=== PATIENT | female | born 1990 | race Caucasian/White ===

== ENCOUNTER 2023-03-29 00:19 | Emergency (ER) | payer MEDICAID ==
[2023-03-29 00:56] VITALS: BP 151/98; O2SAT 97
[2023-03-29] MEDS ORDERED: KETOROLAC 10 MG TABLET PO STA (02:18)
--- NOTE | 2023-03-29 02:24 | ED Physician Documentation ---
History of Present Illness - Stated complaint Stated Complaint: R CHEST PX/ - Chief complaint Chief Complaint: General - History obtained from History obtained from: Patient - Additonal information Additional information: 32yF presents with L nipple creamy discharge and intermittent inversion as well as lumpy texture at the 12oclock position just above the nipple. also with R ribcage pain for past couple days. no known trauma. 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 denies fever, soa, cough, hemoptysis, leg swelling, pleurisy. PD PAST MEDICAL HISTORY - Past Medical History Past Medical History: No - Past Surgical History Past Surgical History: Yes Ortho: Other - Present Medications Home Medications: Ambulatory Orders Medication Instructions Recorded Confirmed No Known Home Medications 03/29/23 03/29/23 - Allergies Allergies/Adverse Reactions: Allergies Allergy/AdvReac Type Severity Reaction Status Date / Time No Known Drug Allergies Allergy Verified 03/29/23 00:50 - Social History Does the pt smoke?: Yes Smoking Status: Current every day smoker Does the pt drink ETOH?: No Substance Use and Type: Other PD ED PE NORMAL - Vitals Vital signs reviewed: Yes - General General: Alert and oriented X 3, No acute distress, Well developed/nourished - HEENT HEENT: Atraumatic, PERRL, EOMI, Moist mucous membranes, Pharynx benign - Neck Neck: Supple, no meningeal sign - Cardiac Cardiac: RRR - Respiratory Respiratory: No respiratory distress, Clear bilaterally - Derm Derm: Other (L breast without discoloration. palpable fibrocystic changes without discrete mass) Results - Vitals Vitals: Vital Signs - 24 hr 03/29/23 00:33 Temperature 36.8 C Heart Rate 106 H Respiratory 17 Rate Blood Pressure 151/98 H O2 Saturation 97 Oxygen O2 Source Room air PD Medical Decision Making - ED course ED course: 32yF presents to the ED for checkup of her L breast as well as R ribcage pain. No concern for traumatic etiology. no ecchymosis. pain is reproducible with twisting and palpation, thus likely MSK in origin. Toradol provided with improvement. symptom care discussed. R breast looks like fibrocystic changes. advised outpatient f/u with electrical prospecting observer. return precautions given. Departure - Departure Disposition: 01 Home, Self Care Clinical Impression: Rib pain, Breast mass Condition: Stable Instructions: Fibrocystic Breasts, Costochond Follow-Up: Erick Borja MD [Provider Admit Priv/Credential] - Comments: You were seen in the emergency department for rib pain and breast mass. These look like benign (not dangerous) conditions. You can follow up with electrical prospecting observer about the breast discharge. Please follow-up with your primary care provider and return to the emergency department if you have any new or worsening symptoms or other concerns.
== END 2023-03-29 02:45 | disposition home or self-care (01) ==
LOC: ED 00:19
DX: N63.0 Unspecified lump in unspecified breast (principal); R07.81 Pleurodynia; F17.200 Nicotine dependence, unspecified, uncomplicated
CPT/HCPCS: 99282; 99283; A9270

== ENCOUNTER 2023-04-10 06:19 | Emergency (ER) | payer MEDICAID ==
[2023-04-10 08:00] VITALS: O2SAT 100
--- NOTE | 2023-04-10 08:12 | ED Physician Documentation ---
History of Present Illness - Stated complaint Stated Complaint: L CHEST PX - Chief complaint Chief Complaint: General - History obtained from History obtained from: Patient - Additonal information Additional information: Patient is a 32-year-old female presenting for evaluation of redness and tenderness to the left breast since last night. She reports that the nipple on her left breast inverted a few months ago and that over the past few weeks she has been having increasing pain to the left breast. She was seen here earlier in March without any imaging done at that time. [place] that her pain was likely musculoskeletal and Breast had Fibrocystic changes on exam. She did schedule an outpatient mammogram but was late to her appointment and they were not able to accommodate her. She has never had a mammogram. She states that since last night she has noticed redness to the breast which was not there previously. At times she has had creamy colored discharge but this has not been consistent over the past month. No fevers. She is not breast-feeding. Denies trauma or injury to the breast including no biting or scratching. Denies piercings to the breast. Review of Systems Constitutional: denies: Fever Cardiac: denies: Chest pain / pressure Respiratory: denies: Dyspnea GI: denies: Abdominal Pain Skin: reports: Rash PD PAST MEDICAL HISTORY - Past Medical History Past Medical History: Yes Psych: Depression - Past Surgical History Past Surgical History: Yes Ortho: Other - Present Medications Home Medications: Ambulatory Orders Medication Instructions Recorded Confirmed cephALEXin [Keflex] 500 mg PO Q6H #28 cap 04/10/23 - Allergies Allergies/Adverse Reactions: Allergies Allergy/AdvReac Type Severity Reaction Status Date / Time No Known Drug Allergies Allergy Verified 04/10/23 06:40 - Social History Does the pt smoke?: Yes Smoking Status: Current every day smoker Does the pt drink ETOH?: No PD ED PE NORMAL - General General: Alert and oriented X 3, No acute distress, Well developed/nourished - HEENT HEENT: Atraumatic - Neck Neck: Supple, no meningeal sign - Cardiac Cardiac: RRR, Strong equal pulses - Respiratory Respiratory: No respiratory distress, Clear bilaterally - Derm Derm: Other (L breast - inverted nipple; erythema to lateral and lower breast with associated warmth; tenderness around areola; R breast - normal in appearance with no tenderness) Results - Vitals Vitals: Vital Signs - 24 hr 04/10/23 04/10/23 04/10/23 06:35 08:00 09:35 Temperature 36.6 C 36.6 C Heart Rate 104 H 95 94 Respiratory 22 18 16 Rate Blood Pressure 131/91 H 132/74 H 137/88 H O2 Saturation 96 100 100 Oxygen O2 Source Room air PD Medical Decision Making - ED course Complexity details: reviewed results, re-evaluated patient, d/w patient ED course: Patient is a 32-year-old female presenting for evaluation of pain and redness to the left breast with an inverted nipple. On exam patient has erythema with overlying warmth. An ultrasound was obtained to evaluate for an abscess and that there does appear to be a fluid collection. I discussed with on-call general surgery who offered to come to the ER in a few hours versus having the patient come to his office this afternoon. Patient would like to go to work and does not want to wait in the emergency department and thus would like to go to his office this afternoon. She was started on cephalexin. She declined lab testing here. Vital signs appear stable and she does not appear ill or toxic. Patient declined pain medications. She is counseled on concerning symptoms to return for as well as the importance of seeing Dr. Tolbert this afternoon. 0905 - D/W Dr. Tolbert. He is currently in his office and would not be able to come to the emergency department until noon. He can see her here at noon or she can come to the office this afternoon. 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 Tolbert to see her. I did offer to give her a work note for her boss but she declined. She states that she can see him this afternoon and Dr. Tolbert has asked for her to come at 330 which she is agreeable to. I am starting her on cephalexin which Dr. Tolbert is aware of and agrees with. A skin marking was placed by the robotic maintenance technician to a Dr. Tolbert when he sees her in the office. Patient understands the importance of having this drained and that antibiotics alone are not to the recommended treatment. Departure - Departure Disposition: 01 Home, Self Care Clinical Impression: Left breast abscess Condition: Stable Follow-Up: Juan Tolbert MD [Provider Admit Priv/Credential] - (GO TO HIS OFFICE TODAY 04/10/23 at 3:30PM) Prescriptions: cephALEXin [Keflex] 500 mg PO Q6H #28 cap Comments: There is an abscess to your left breast that measures approximately 3 x 3 cm. This should be drained and it would be best for a surgeon to do this given the location. I have spoken to Dr. Juan Tolbert who is our general surgeon on- call and he can see you in his office today at 3:30 PM. Please be prompt. I have also sent a prescription for an antibiotic to [facility] in [place]. Please make sure to take the antibiotic as directed and see Dr. Tolbert for drainage of the abscess. The official report from the radiologist regarding the ultrasound is still pending and I will notify you if there are any significant findings other than the abscess. Forms: PCP List Discharge Date/Time: 04/10/23 09:44
[2023-04-10] MEDS ORDERED: ACETAMINOPHEN 325 MG TABLET PO STA (08:13)
[2023-04-10] MEDS ORDERED: cephALEXin 250 MG CAPSULE PO STA (09:17)
[2023-04-10 09:41] VITALS: BP 137/88
--- NOTE | 2023-04-10 12:13 | Ultrasound Report ---
LIMITED ULTRASOUND OF LEFT BREAST: 04/10/2023 CLINICAL: Palpable left breast lump. Diffuse left breast pain. No prior exams were available for comparison. Color flow ultrasound of the left breast retroareolar was performed. Craig scale images of the real-t mekhi examination were reviewed. There is a 3.5 cm x 3 cm x 2.3 cm, estimated volume 13cc, taller than wide irregular fluid collection in the left breast at 8 o'clock in the retroareolar region. This irregular fluid collection is anec hoic with posterior acoustic enhancement. This correlates as palpated, to the reported pain, with ar ea of redness, and the nipple discharge. IMPRESSION: PROBABLY BENIGN Irregular fluid collection in the left retroareolar breast measuring 3.5 cm, estimated volume 13 cc. This most likely is an abscess and is probably benign. Planned drainage in the emergency department. A follow-up ultrasound in 1 month is recommended to demonstrate resolution. Exam findings were conveyed to the patient. This exam was interpreted at Station ID: [id number]. Electronically Signed By: Arsen Nielson M.D. [facility]/:04/10/2023 09:35:37 Ultrasound BI-RADS: 3 Probably benign BI-RADS CATEGORY: (3) - 3 Ultrasound [id number] 1 month follow-up LATERALITY: (B)
== END 2023-04-10 09:44 | disposition home or self-care (01) ==
LOC: ED 06:19
DX: N61.1 Abscess of the breast and nipple (principal); F17.200 Nicotine dependence, unspecified, uncomplicated
CPT/HCPCS: 76642; 93005; 99284; A9270; 80048; 85025

== ENCOUNTER 2023-11-01 04:24 | Emergency (ER) | payer MEDICAID ==
[2023-11-01 04:41] VITALS: BP 150/95; O2SAT 97
--- NOTE | 2023-11-01 04:48 | ED Physician Documentation ---
History of Present Illness - Stated complaint Stated Complaint: TOOTH PX/BILATERAL SWOLLEN FEET - Chief complaint Chief Complaint: General - History obtained from History obtained from: Patient - Additonal information Additional information: 33-year-old female presents for several days of right upper molar pain and swelling as well as several months of bilateral lower extremity swelling, left greater than right. Patient states that several weeks ago she completed a course of antibiotics, but due to her busy work schedule she was never able to make an appointment with a dentist and she feels like her symptoms are coming back. She was seen in the emergency department several months ago as well for her lower extremity swelling but she states that nothing was found. She states that in the last week her left leg seems larger than the right leg, but both are very swollen. Review of Systems Constitutional: denies: Fever, Chills Throat: reports: Dental pain / toothache. denies: Oral lesions / sores, Sore throat Respiratory: denies: Dyspnea, Cough, Wheezing GI: denies: Abdominal Pain, Nausea, Vomiting Musculoskeletal: reports: Extremity pain, Extremity swelling. denies: Neck pain, Back pain, Joint pain PD PAST MEDICAL HISTORY - Past Medical History Past Medical History: No Psych: Depression - Past Surgical History Past Surgical History: Yes Ortho: Other - Present Medications Home Medications: Ambulatory Orders Medication Instructions Recorded Confirmed Amox/Clav 875/125 [Augmentin] 1 each PO Q12H #20 tablet 11/01/23 - Allergies Allergies/Adverse Reactions: Allergies Allergy/AdvReac Type Severity Reaction Status Date / Time No Known Drug Allergies Allergy Verified 11/01/23 04:29 - Social History Does the pt smoke?: Yes Smoking Status: Current every day smoker Does the pt drink ETOH?: No Does the pt have substance abuse?: No - POLST Patient has POLST: No PD ED PE NORMAL - Vitals Vital signs reviewed: Yes - General General: Alert and oriented X 3, No acute distress - HEENT HEENT: Moist mucous membranes, Pharynx benign, Other (Extensive dental caries, broken right maxillary molar) - Cardiac Cardiac: RRR - Respiratory Respiratory: No respiratory distress - Derm Derm: Normal color, Warm and dry, No rash - Extremities Extremities: No deformity, Normal ROM s pain, Other (bilateral nonpitting edema lower extremities. LLE slightly larger in size than RLE) - Neuro Neuro: Alert and oriented X 3, squadron worker 2-12 intact, No motor deficit, Normal speech Results - Vitals Vitals: Vital Signs - 24 hr 11/01/23 11/01/23 04:30 04:34 Temperature 36.6 C 36.6 C Heart Rate 93 93 Respiratory 18 18 Rate Blood Pressure 155/95 H 150/95 H O2 Saturation 97 97 Oxygen O2 Source Room air PD Medical Decision Making - ED course Complexity details: reviewed results, re-evaluated patient, considered differential, d/w patient ED course: Patient presenting for right-sided dental pain as well as worsening of chronic lower extremity swelling. There is no trismus, no obvious facial swelling, no obvious surrounding cellulitis. Patient does have swelling of bilateral lower extremities without pitting edema. Patient informed that we do not presently have ultrasound in-house but they would be present at 6 AM if she would like to wait for ultrasound. Patient stated that she had to get to work and could not stay for an ultrasound. I recommended that if patient continued to have swelling she return for repeat evaluation, especially since her swelling has gotten worse from when she initially had an ultrasound. Antibiotics sent to pharmacy of choice. Patient counseled on the importance of following up with a dentist for definitive treatment of her broken teeth. Patient declined note for work. Departure - Departure Disposition: 01 Home, Self Care Clinical Impression: Dental abscess, Leg swelling Condition: Stable Instructions: ED Tooth Pain Prescriptions: Amox/Clav 875/125 [Augmentin] 1 each PO Q12H #20 tablet Comments: Antibiotics have been sent to the [facility] in [place]. Please take all of these medications as prescribed even if you feel improved. It is extremely important you follow-up with a dentist. You did not want to stay for an ultrasound today, I recommend that if you continue to have leg swelling, especially if it is different in size that you return for an ultrasound or follow-up with a primary care doctor. Wear compression stockings when working to help with swelling and elevate your feet when at rest. Forms: PCP List Discharge Date/Time: 11/01/23 04:58
== END 2023-11-01 04:58 | disposition home or self-care (01) ==
LOC: ED 04:24
DX: K04.7 Periapical abscess without sinus (principal); R60.0 Localized edema; F17.200 Nicotine dependence, unspecified, uncomplicated
CPT/HCPCS: 99282; 99284